=== PATIENT | female | born 1960 | race Caucasian/White ===

== ENCOUNTER 2017-10-28 08:32 | Emergency (ER) | payer OTHER ==
[2017-10-28 08:36] VITALS: RESP 20
--- NOTE | 2017-10-28 09:18 | C.PDOC ---
History Of Present Illness 57 y/o female presents to ED with complaints of left elbow pain and left knee pain since June worsening for "several days" which prompted visit to ED today. Patient states he took Advil yesterday for pain with mild relief. Pain is worsened with movement. Patient denies swelling to hand, trauma, rash, weakness, numbness or any other complaints at this time. Time Seen by Provider: 10/28/17 08:47 Chief Complaint (Nursing): Upper Extremity Problem/Injury History Per: Patient History/Exam Limitations: no limitations Onset/Duration Of Symptoms: Days Current Symptoms Are (Timing): Still Present Quality: "Pain" Recent travel outside of the [place]: No Past Medical History Reviewed: Historical Data, Nursing Documentation, Vital Signs Vital Signs: Last Vital Signs Temp 97.6 F 10/28/17 10:46 Pulse 67 10/28/17 10:46 Resp 20 10/28/17 10:46 BP 132/85 10/28/17 10:46 Pulse Ox 99 10/28/17 10:46 - Medical History PMH: Fractures (Rt arm 7 years ago), HTN, Hypercholesterolemia Surgical History: No Surg Hx Family History: States: No Known Family Hx - Social History Hx Alcohol Use: Yes Hx Substance Use: No - Immunization History Hx Tetanus Toxoid Vaccination: No Hx Influenza Vaccination: No Hx Pneumococcal Vaccination: No Review Of Systems Constitutional: Negative for: Fever, Weakness Gastrointestinal: Negative for: Nausea, Vomiting Musculoskeletal: Positive for: Arm Pain, Leg Pain Skin: Negative for: Rash Neurological: Negative for: Weakness, Numbness Physical Exam - Physical Exam Appears: Non-toxic, No Acute Distress Skin: Warm, Dry, No Rash Head: Atraumatic, Normacephalic Eye(s): bilateral: Normal Inspection Oral Mucosa: Moist Neck: Normal ROM, Supple Extremity: Normal ROM, No Tenderness, Capillary Refill (<2 seconds), No Swelling , Other (Bone spurs to left elbow and knee) Neurological/Psych: Oriented x3, Normal Speech, Normal Motor, Normal Sensation Gait: Steady ED Course And Treatment O2 Sat by Pulse Oximetry: 100 (RA) Pulse Ox Interpretation: Normal Medical Decision Making Medical Decision Making: Plan: Tylenol and Naprosen administered Disposition - Disposition Referrals: [facility] at [facility] [Outside] Disposition: HOME/ ROUTINE Disposition Time: 10:29 Condition: GOOD Additional Instructions: Follow up with medical doctor within 1-2 days. Return if worsened. 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 - Scribe Statement The provider has reviewed the documentation as recorded by the Mercedesibalejo Pino All medical record entries made by the Radha were at my direction and personally dictated by me. I have reviewed the chart and agree that the record accurately reflects my personal performance of the history, physical exam, medical decision making, and the department course for this patient. I have also personally directed, reviewed, and agree with the discharge instructions and disposition.
[2017-10-28] MEDS ORDERED: Naproxen 550 mg Tab PO STA (09:25)
[2017-10-28] MEDS ORDERED: Naproxen 550 mg Tab PO ONE (09:49)
[2017-10-28 10:48] VITALS: BP 132/85; PULSE 67; TEMP 97.6
[2017-11-01 08:28] VITALS: O2SAT 100
== END 2017-10-28 10:45 | disposition home or self-care (01) ==
LOC: C.ER 08:32
DX: M25.522 Pain in left elbow (principal); M25.562 Pain in left knee

== ENCOUNTER 2018-01-13 11:48 | Emergency (ER) | payer OTHER ==
[2018-01-13 12:14] VITALS: BP 115/79; PULSE 82; RESP 18; TEMP 98.8; O2SAT 96
--- NOTE | 2018-01-13 13:24 | C.PDOC ---
History Of Present Illness 57 y/o female presents to the ER complaining of left knee and ankle pain which began after she twisted her left ankle and fell 3 weeks ago. Patient states that she applied ice and takes Tylenol or Advil. Patient wears heels daily and area is still swollen. Denies having weakness and numbness. Time Seen by Provider: 01/13/18 12:15 Chief Complaint (Nursing): Lower Extremity Problem/Injury History Per: Patient History/Exam Limitations: no limitations Onset/Duration Of Symptoms: Days Current Symptoms Are (Timing): Still Present Severity: Moderate - Ankle/Foot Description Of Injury: Twisted (left ankle) Past Medical History Reviewed: Historical Data, Nursing Documentation, Vital Signs Vital Signs: Last Vital Signs Temp 98.8 F 01/13/18 12:03 Pulse 82 01/13/18 12:03 Resp 18 01/13/18 12:03 BP 115/79 01/13/18 12:03 Pulse Ox 96 01/13/18 13:59 - Medical History PMH: Fractures (Rt arm 7 years ago), HTN (denies), Hypercholesterolemia Family History: States: Unknown Family Hx - Social History Hx Alcohol Use: Yes Hx Substance Use: No - Immunization History Hx Tetanus Toxoid Vaccination: No Hx Influenza Vaccination: No Hx Pneumococcal Vaccination: No Review Of Systems Except As Marked, All Systems Reviewed And Found Negative. Musculoskeletal: Positive for: Foot Pain, Other (left ankle pain ) Physical Exam - Physical Exam Appears: Non-toxic, No Acute Distress, Other (Patient wearing 3 inch high heels) Skin: Warm, Dry, No Rash, No Ecchymosis Head: Atraumatic, Normacephalic Eye(s): bilateral: Normal Inspection Neck: Supple Chest: Symmetrical Respiratory: No Rales Extremity: Normal ROM, Tenderness (tenderness to lateral aspect of left ankle, mild tenderness to anterior aspect of left knee), No Calf Tenderness, No Deformity, Swelling (moderate swelling to left ankle and foot) Pulses: Left Dorsalis Pedis: Normal Neurological/Psych: Oriented x3, Normal Speech Gait: Steady ED Course And Treatment O2 Sat by Pulse Oximetry: 96 (RA) Pulse Ox Interpretation: Normal - Other Rad X-Ray- Left Knee X-Ray: Viewed By Me, Read By Radiologist Interpretation: PROCEDURE: Left Knee Radiographs. HISTORY: Pain. COMPARISON : None. FINDINGS: BONES: Normal. No fracture. JOINTS: Normal. No osteoarthritis. JOINT EFFUSION: None. OTHER FINDINGS: None. IMPRESSION: Normal radiographs of the left knee. X-Ray- Left Ankle X-Ray: Viewed By Me, Read By Radiologist Interpretation: PROCEDURE: Left Ankle Radiographs. HISTORY: pain s.p fall 3 weeks ago. COMPARISON: None. FINDINGS: BONES: Normal. No fracture. JOINTS : Normal. No osteoarthritis. Ankle mortise maintained. Talar dome intact. SOFT TISSUES: Normal. OTHER FINDINGS: None. IMPRESSION: Normal left ankle radiographs. X-Ray- Left Foot X-Ray: Viewed By Me, Read By Radiologist Interpretation: PROCEDURE: Left Foot Radiographs. HISTORY: Pain. COMPARISON : None. FINDINGS: BONES: Bone alignment is normal. There is mild periarticular bone demineralization. No acute displaced fracture or bone destruction. There is a small plantar calcaneal spur. JOINTS: Normal. SOFT TISSUES: There is mild dorsal soft tissue swelling. OTHER FINDINGS: None. IMPRESSION: No acute fracture or dislocation. Medical Decision Making Medical Decision Making: Impression: ankle and knee injury Plan: * Motrin PO * X- Ray- Left Knee * X- Ray - Left Foot and ankle Progress: xrays viewed by me showing no acute fractures or dislocations. Sharma dressing applied to left foot by CP and checked by me. Ortho shoe applied. Patient instructed to not wear heels. Advise rest, ice, elevation and to take NSAID. Instruct to follow up with Podiatry Disposition Counseled Patient/Family Regarding: Diagnosis, Need For Followup, Rx Given - Disposition Referrals: [facility] [Outside] [facility] [Other] Disposition: HOME/ ROUTINE Disposition Time: 13:21 Condition: GOOD Additional Instructions: Your xray was normal, no fracture. Please apply ice to area 15 minutes three times a day. Take Motrin as needed for pain every 6 hours, with food to not upset stomach. 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 - Scribe Statement The provider has reviewed the documentation as recorded by the Radha Zaragoza Provider Attestation All medical record entries made by the Mercedesibalejo were at my direction and personally dictated by me. I have reviewed the chart and agree that the record accurately reflects my personal performance of the history, physical exam, medical decision making, and the department course for this patient. I have also personally directed, reviewed, and agree with the discharge instructions and disposition.
--- NOTE | 2018-01-13 13:32 | RAD ---
PROCEDURE: Left Foot Radiographs. HISTORY: Pain COMPARISON: None. FINDINGS: BONES: Bone alignment is normal. There is mild periarticular bone demineralization. No acute displaced fracture or bone destruction. There is a small plantar calcaneal spur. JOINTS: Normal. SOFT TISSUES: There is mild dorsal soft tissue swelling. OTHER FINDINGS: None. IMPRESSION: No acute fracture or dislocation.
--- NOTE | 2018-01-13 13:39 | RAD ---
PROCEDURE: Left Knee Radiographs. HISTORY: Pain. COMPARISON: None. FINDINGS: BONES: Normal. No fracture. JOINTS: Normal. No osteoarthritis. JOINT EFFUSION: None. OTHER FINDINGS: None. IMPRESSION: Normal radiographs of the left knee.
--- NOTE | 2018-01-13 13:40 | RAD ---
PROCEDURE: Left Ankle Radiographs. HISTORY: pain s.p fall 3 weeks ago COMPARISON: None FINDINGS: BONES: Normal. No fracture. JOINTS: Normal. No osteoarthritis. Ankle mortise maintained. Talar dome intact SOFT TISSUES: Normal. OTHER FINDINGS: None. IMPRESSION: Normal left ankle radiographs.
== END 2018-01-13 13:41 | disposition home or self-care (01) ==
LOC: C.ER 11:48
DX: S93.402A Sprain of unspecified ligament of left ankle, initial encounter (principal); W19.XXXA Unspecified fall, initial encounter; E78.00 Pure hypercholesterolemia, unspecified

== ENCOUNTER 2018-09-14 09:40 | Emergency (ER) | payer OTHER ==
--- NOTE | 2018-09-14 10:15 | C.PDOC ---
History Of Present Illness 57 year old female presents to ED s/p fall that occurred outside. Patient fell outside injuring her left knee. Patient also has a small abrasion to her nose and laceration to her lower lip. She has a history of dizziness. Patient claims to have lost consciousness when she fell. She denies any numbness or weakness. - HPI Time Seen by Provider: 09/14/18 09:54 Chief Complaint (Nursing): Trauma History Per: Patient History/Exam Limitations: no limitations Onset/Duration Of Symptoms: Hrs Location Of Injury: Left: Knee (abrasion), Anterior: Knee Associated Symptoms: LOC - Fall Fall:Prior To Injury: Tripped Past Medical History Reviewed: Historical Data, Nursing Documentation, Vital Signs Vital Signs: Last Vital Signs Temp 98.3 F 09/14/18 09:52 Pulse 96 H 09/14/18 09:52 Resp 18 09/14/18 09:52 BP 143/92 H 09/14/18 09:52 Pulse Ox 96 09/14/18 09:52 - Medical History PMH: Fractures (Rt arm 7 years ago), HTN, Hypercholesterolemia Denies: Chronic Kidney Disease Surgical History: No Surg Hx Family History: States: Unknown Family Hx - Social History Hx Alcohol Use: Yes Hx Substance Use: No - Immunization History Hx Tetanus Toxoid Vaccination: No Hx Influenza Vaccination: No Hx Pneumococcal Vaccination: No Review Of Systems Constitutional: Negative for: Fever, Chills, Weakness Musculoskeletal: Positive for: Leg Pain (abrasion to the left knee) Neurological: Negative for: Weakness, Numbness, Headache, Dizziness Physical Exam - Physical Exam Appears: Well, Non-toxic, No Acute Distress Skin: Normal Color, Warm, Dry Head: Atraumatic, Normacephalic Nose: Other (Superficial abrasion ) Lips: Laceration (inner aspect of the lower lip) Teeth: Normal Dentition (intact), No Loose Neck: Normal ROM, Supple Chest: Symmetrical, No Deformity Respiratory: No Accessory Muscle Use Gastrointestinal/Abdominal: Soft, No Tenderness Extremity: Capillary Refill (<2 seconds), Other (Left knee abrasion) Extremity: Right: Atraumatic, Normal Color And Temperature, Normal ROM Neurological/Psych: Oriented x3, Normal Speech, Normal Cognition Gait: Steady ED Course And Treatment ECG: Interpreted By Me, Viewed By Me ECG Rhythm: Sinus Rhythm ECG Interpretation: Normal Rate From EC O2 Sat by Pulse Oximetry: 96 (RA) Pulse Ox Interpretation: Normal - Other Rad Left Knee X-ray X-Ray: Interpreted by Me, Viewed By Me Interpretation: Accession No. : [id number]. Patient Name / ID : WINTSON BANDA / [id number]. Exam Date : 09/14/2018 10:17:07 ( Approved ). Study Comment : Sex / Age : F / 57Y. Creator : miguel ángel rock. Dictator : Louie Oropeza MD. Assistant Track Coach : Mrb Engineer : Louie Oropeza MD. Approver2 : Report Date : 09/14/2018 10:32:43. My Comment : . This report is currently processing and HAS NOT BEEN OFFICIALLY SIGNED BY THE PHYSICIAN - ESTIMATED TIME OF APPROVAL IS 09/14/2018 11:07. Date of service: 09/14/2018. PROCEDURE: Left Knee Radiographs. HISTORY: Pain. COMPARISON: Comparison made with prior radiographs left knee 01/13/2018. FINDINGS: BONES: No evidence of acute displaced fracture nor dislocation. Osseous structures intact. JOINTS: Joint spaces preserved. No significant os teoarthritis. JOINT EFFUSION: Suspect trace joint effusion. OTHER FINDINGS: None. IMPRESSION: No acute fractures.. L-spine X-ray X-Ray: Interpreted by Me, Viewed By Me Interpretation: Accession No. : [id number]. Patient Name / ID : WINSTON BANDA / [id number]. Exam Date : 09/14/2018 10:16:53 ( Approved ). Study Comment : Sex / Age : F / 57Y. Creator : miguel ángel rock. Dictator : Louie Oropeza MD. Assistant Track Coach : Mrb Engineer : Louie Oropeza MD. Approver2 : Report Date : 09/14/2018 10:34:10. My Comment : . Date of service: 09/14/2018. PROCEDURE: Radiographs of the Lumbar Spine. HISTORY: Trauma. COMPARISON: No prior. FINDINGS: BONES: There are no acute compression fractures no retropulsed fragments. Vertebral bodies exhibit relatively normal stature. There is a mild dextroscoliosis centered at approximately the L2-L3 level. Vertebral bodies otherwise exhibit normal alignment. Facets normally aligned. . DISC SPACES: Multilevel degenerative spondylosis most notably affecting the L4-L5 and L5-S1 levels.. Changes include varying degrees of disc space narrowing more so along the posterior disc margins with endplate eburnation and small anterolateral as well as posterior osteophyte formation. Facets also mildly hypertrophic the L5-S1 through the L 2 L3 levels in decreasing order of severity. OTHER FINDINGS: None. IMPRESSION: No acute fractures. Mild multilevel degenerative spondylosis. Mild dextroscoliosis. - CT Scan/US Head CT Other Rad Studies (CT/US): Interpreted By Me, Read By Radiologist CT/US Interpretation: Accession No. : [id number]. Patient Name / ID : WINSTON BANDA / [id number]. Exam Date : 09/14/2018 10:38:19 ( Approved ). Study Comment : Sex / Age : F / 57Y. Creator : Jo Beckwith. Dictator : Gris Conrad MD. Assistant Track Coach : Mrb Engineer : Gris Conrad MD. Approver2 : Report Date : 09/14/2018 10:45:02. My Comment : . Date of service: 09/14/2018. PROCEDURE: CT HEAD WITHOUT CONTRAST. HISTORY: R/O Bleed. COMPARISON: Noncontrast head CT performed 11/03/15. TECHNIQUE: Axial computed tomography images were obtained through the head/brain without intravenous contrast. Radiation dose: Total exam DLP = 1068.97 mGy-cm. This CT exam was performed using one or more of the following dose reduction techniques: Automated exposure control, adjustment of the mA and/or kV according to patient size, and/or use of iterative reconstruction technique. FINDINGS: Mild streak artifact limits evaluation of the skull base. HEMORRHAGE: No intracranial hemorrhage. BRAIN: No mass effect or edema. Intracranial atherosclerotic calcifications. Jean- white matter differentiation appears intact. Please note that MRI with diffusion imaging is more sensitive in the detection of acute ischemic event. VENTRICLES: No hydrocephalus. CALVARIUM: Unremarkable. PARANASAL SINUSES: Unremarkable as visualized. No significant inflammatory changes. MASTOID AIR CELLS: Unremarkable as visualized. No inflammatory changes. OTHER FINDINGS: None. IMPRESSION: No acute intracranial pathology identified. C-spine CT Other Rad Studies (CT/US): Interpreted By Me, Read By Radiologist CT/US Interpretation: Accession No. : [id number]. Patient Name / ID : WINSTON BANDA / [id number]. Exam Date : 09/14/2018 10:40:56 ( Approved ). Study Comment : Sex / Age : F / 57Y. Creator : Louie Oropeza MD. Dictator : Louie Oropeza MD. Assistant Track Coach : Mrb Engineer : Louie Oropeza MD. Approver2 : Report Date : 09/14/2018 12:12:16. My Comment : . Date of service: 09/14/2018. PROCEDURE: CT Cervical Spine without contrast. HISTORY: Neck pain. COMPARISON: None available. TECHNIQUE: Axial computed tomography images were obtained of the cervical spine without the use of intravenous contrast. Coronal and sagittal reformatted images were created and reviewed. Radiation dose: Total exam DLP = 479.63 mGy-cm. This CT exam was performed using one or more of the following dose reduction techniques: Automated exposure control, adjustment of the mA and/or kV according to patient size, and/or use of iterative reconstruction technique. FINDINGS: VERTEBRAE: . The the no acute compression fractures nor retropulsed fragments. There is very slight anterior stature loss of the C5 segment felt to be degenerative in origin. Vertebral bodies otherwise exhibit normal stature.. There is mild straightening of the normal cervical lordosis which may in part be due to patient positioning gantry however underlying element of muscle spasm may contribute. DISCS/SPINAL CANAL/NEURAL FORAMINA: Multilevel degenerative spondylosis. At the C2-C3 level, there is mild disc space narrowing. There is what appears represent a small central and bilateral (left slightly larger than right) disc protrusion which compresses the ventral surface of the thecal sac though does not cause significant cord compression or canal stenosis. The exit foramina adequate. At the C3-C4 level, there is disc space narrowing. Small central and bilateral focal disc bulge indents the ventral surface of the thecal sac and appears to reach the ventral surface of the cord. Central canal appears adequate. Exit foramina are also adequate despite minimally overgrown facet joints. At the C 4 C5 level, there is disc space narrowing with a small focal central disc herniation that compresses the ventral surface of the thecal sac and spinal cord. Central canal does appears marginal to minimally narrowed. Minimal degenerative squaring of the uncovertebral joints. The left facet joints hypertrophic. Exit foramina are marginal to adequate on the right and marginal to slightly narrowed on the left. At the C5-C6 level, there is marked disc space narrowing with endplate eburnation and subchondral cystic changes.. Small of broad-based osteophytic ridge disc complex asymmetrically larger on the left than right and contiguous with hypertrophic uncovertebral joints noted.. The changes result in minor flattening of the ventral surface of the thecal sac and minor flattening of the ventral surface of the cord more so on the left triston e. Central canal slightly narrowed. The facets are also hypertrophic. Exit foramina are stenotic bilaterally. Less severe but similar changes seen at the C6-C7 level with asymmetric disc ridge complex slightly larger on the left than right and also contiguous with hypertrophic uncovertebral joints. The central canal appears adequate. Left exit foramen is stenotic. Right exit foramen is marginal to adequate. PARASPINAL SOFT TISSUES: Unremarkable. OTHER FINDINGS: Lung apices are clear. IMPRESSION: No acute fractures. Multilevel degenerative spondylosis as described. Progress Note: Treated with tylenol PO Reassessment Condition: Improved Medical Decision Making Medical Decision Making: Impression: 57 year old with abrasion to the left knee Plan: Patient given Tylenol PO. C-spine CT, Head CT, Left Knee X-ray, and LS X-ray ordered for patient. Glucose POC. Gkucose POC: [address] C-[address] CT -normal Head CT- normal Left knee X-ray and LS X-ray - normal Upon reassessment, patient is resting comfortably, in no distress, and is stable for discharge. Patient is advised to follow up with PMD for further evaluations. Patient is advised to return to ED if symptoms persist or worsen. 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 (Chen Juares) - Scribe Statement The provider has reviewed the documentation as recorded by the Scribe (Chen Juares) All medical record entries made by the Scribe were at my direction and personally dictated by me. I have reviewed the chart and agree that the record accurately reflects my personal performance of the history, physical exam, medical decision making, and the department course for this patient. I have also personally directed, reviewed, and agree with the discharge instructions and disposition.
--- NOTE | 2018-09-14 11:00 | CT ---
Date of service: 09/14/2018 PROCEDURE: CT HEAD WITHOUT CONTRAST. HISTORY: R/O Bleed COMPARISON: Noncontrast head CT performed 11/03/15 TECHNIQUE: Axial computed tomography images were obtained through the head/brain without intravenous contrast. Radiation dose: Total exam DLP = 1068.97 mGy-cm. This CT exam was performed using one or more of the following dose reduction techniques: Automated exposure control, adjustment of the mA and/or kV according to patient size, and/or use of iterative reconstruction technique. FINDINGS: Mild streak artifact limits evaluation of the skull base. HEMORRHAGE: No intracranial hemorrhage. BRAIN: No mass effect or edema. Intracranial atherosclerotic calcifications. Jean-white matter differentiation appears intact. Please note that MRI with diffusion imaging is more sensitive in the detection of acute ischemic event. VENTRICLES: No hydrocephalus. CALVARIUM: Unremarkable. PARANASAL SINUSES: Unremarkable as visualized. No significant inflammatory changes. MASTOID AIR CELLS: Unremarkable as visualized. No inflammatory changes. OTHER FINDINGS: None. IMPRESSION: No acute intracranial pathology identified.
--- NOTE | 2018-09-14 11:06 | RAD ---
Date of service: 09/14/2018 PROCEDURE: Left Knee Radiographs. HISTORY: Pain. COMPARISON: Comparison made with prior radiographs left knee 01/13/2018. FINDINGS: BONES: No evidence of acute displaced fracture nor dislocation. Osseous structures intact. JOINTS: Joint spaces preserved. No significant osteoarthritis. JOINT EFFUSION: Suspect trace joint effusion. OTHER FINDINGS: None. IMPRESSION: No acute fractures..
--- NOTE | 2018-09-14 11:28 | RAD ---
Date of service: 09/14/2018 PROCEDURE: Radiographs of the Lumbar Spine. HISTORY: Trauma COMPARISON: No prior. FINDINGS: BONES: There are no acute compression fractures no retropulsed fragments. Vertebral bodies exhibit relatively normal stature. There is a mild dextroscoliosis centered at approximately the L2-L3 level. Vertebral bodies otherwise exhibit normal alignment. Facets normally aligned. . DISC SPACES: Multilevel degenerative spondylosis most notably affecting the L4-L5 and L5-S1 levels.. Changes include varying degrees of disc space narrowing more so along the posterior disc margins with endplate eburnation and small anterolateral as well as posterior osteophyte formation. Facets also mildly hypertrophic the L5-S1 through the L 2 L3 levels in decreasing order of severity OTHER FINDINGS: None. IMPRESSION: No acute fractures. Mild multilevel degenerative spondylosis. Mild dextroscoliosis.
[2018-09-14 12:11] VITALS: BP 127/80; PULSE 80; RESP 20; TEMP 98.1
--- NOTE | 2018-09-14 12:15 | CT ---
Date of service: 09/14/2018 PROCEDURE: CT Cervical Spine without contrast HISTORY: Neck pain. COMPARISON: None available. TECHNIQUE: Axial computed tomography images were obtained of the cervical spine without the use of intravenous contrast. Coronal and sagittal reformatted images were created and reviewed. Radiation dose: Total exam DLP = 479.63 mGy-cm. This CT exam was performed using one or more of the following dose reduction techniques: Automated exposure control, adjustment of the mA and/or kV according to patient size, and/or use of iterative reconstruction technique. FINDINGS: VERTEBRAE: . The the no acute compression fractures nor retropulsed fragments. There is very slight anterior stature loss of the C5 segment felt to be degenerative in origin. Vertebral bodies otherwise exhibit normal stature.. There is mild straightening of the normal cervical lordosis which may in part be due to patient positioning gantry however underlying element of muscle spasm may contribute DISCS/SPINAL CANAL/NEURAL FORAMINA: Multilevel degenerative spondylosis. At the C2-C3 level, there is mild disc space narrowing. There is what appears represent a small central and bilateral (left slightly larger than right) disc protrusion which compresses the ventral surface of the thecal sac though does not cause significant cord compression or canal stenosis. The exit foramina adequate. At the C3-C4 level, there is disc space narrowing. Small central and bilateral focal disc bulge indents the ventral surface of the thecal sac and appears to reach the ventral surface of the cord. Central canal appears adequate. Exit foramina are also adequate despite minimally overgrown facet joints. At the C 4 C5 level, there is disc space narrowing with a small focal central disc herniation that compresses the ventral surface of the thecal sac and spinal cord. Central canal does appears marginal to minimally narrowed. Minimal degenerative squaring of the uncovertebral joints. The left facet joints hypertrophic. Exit foramina are marginal to adequate on the right and marginal to slightly narrowed on the left. At the C5-C6 level, there is marked disc space narrowing with endplate eburnation and subchondral cystic changes.. Small of broad-based osteophytic ridge disc complex asymmetrically larger on the left than right and contiguous with hypertrophic uncovertebral joints noted.. The changes result in minor flattening of the ventral surface of the thecal sac and minor flattening of the ventral surface of the cord more so on the left side. Central canal slightly narrowed. The facets are also hypertrophic. Exit foramina are stenotic bilaterally. Less severe but similar changes seen at the C6-C7 level with asymmetric disc ridge complex slightly larger on the left than right and also contiguous with hypertrophic uncovertebral joints. The central canal appears adequate. Left exit foramen is stenotic. Right exit foramen is marginal to adequate. PARASPINAL SOFT TISSUES: Unremarkable. OTHER FINDINGS: Lung apices are clear. IMPRESSION: No acute fractures. Multilevel degenerative spondylosis as described.
[2018-09-14 12:43] VITALS: O2SAT 96
== END 2018-09-14 12:13 | disposition home or self-care (01) ==
LOC: C.ER 09:40
DX: S09.90XA Unspecified injury of head, initial encounter (principal); T14.8XXA Other injury of unspecified body region, initial encounter; W01.0XXA Fall on same level from slipping, tripping and stumbling without subsequent striking against object, initial encounter; Y92.410 Unspecified street and highway as the place of occurrence of the external cause; I10 Essential (primary) hypertension; E78.00 Pure hypercholesterolemia, unspecified